=== PATIENT | male | born 1960 | race Caucasian/White ===

== ENCOUNTER 2022-05-16 14:36 | Emergency (ER) | payer OTHER ==
[2022-05-16] MEDS ORDERED: SODIUM CHLORIDE 1,987 ML IV ONE (16:34)
[2022-05-16 17:24] LABS: HEMATOCRIT 44.3 % (35.4-49); HEMOGLOBIN 14.8 G/dL (11.7-16.9); MCH 35.4 pg (25.7-33.7); MCHC 33.5 g/dl (32.0-35.9); MEAN CELL VOLUME 105.7 fl (80-96); MEAN PLT VOLUME 8.9 fl (7.5-11.1); PLATELET COUNT 151.6 10^3/uL (134-434); RBC 4.19 10^6/uL (4.00-5.60); RDW 14.4 % (11.9-15.9); WHITE BLOOD COUNT 7.6 10^3/uL (4.0-10.8)
[2022-05-16 17:35] LABS: ALBUMIN 3.3 g/dl (3.4-5.0); BILIRUBIN,TOTAL 0.8 mg/dl (0.2-1); CALCIUM 8.7 mg/dl (8.5-10); CREATININE 1.2 mg/dl (0.55-1.3); TOT PROT 7.9 g/dl (6.4-8.2)
[2022-05-16 17:40] LABS: INR 1.08 (0.83-1.09); PROTHROMBIN TIME (PATIENT) 12.4 SEC (9.7-13.0)
[2022-05-16 17:42] LABS: ACTIVATED PTT 34.6 SECONDS (25.2-36.5)
[2022-05-16 18:35] LABS: ANISOCYTOSIS 1+; MACROCYTOSIS 1+; PLATELET ESTIMATE ADEQUATE
[2022-05-16 18:43] LABS: VENOUS O2 SATURATION 80.4 % (70-80); VENOUS PCO2 53.2 mmHg (38-52); VENOUS PH 7.334 (7.310-7.410)
[2022-05-16 20:10] LABS: URINE APPEARANCE CLEAR; URINE BILIRUBIN NEGATIVE (NEGATIVE); URINE COLOR YELLOW; URINE GLUCOSE (UA) NEGATIVE (NEGATIVE)
[2022-05-16 20:11] LABS: URINE KETONE NEGATIVE (NEGATIVE); URINE LEUK ESTERASE NEGATIVE (NEGATIVE); URINE NITRITE NEGATIVE (NEGATIVE); URINE PROTEIN NEGATIVE (NEGATIVE); URINE UROBILINOGEN 0.2 (0.2-1.0)
[2022-05-16] MEDS ORDERED: DOXYCYCLINE HYCLATE 100 MG CAPSULE PO ONE ×2 (21:10→21:12)
[2022-05-16] MEDS ORDERED: carBAMazepine XR 400 MG TAB.ER.12H PO SCH (22:00)
[2022-05-16] MEDS ORDERED: SODIUM CHLORIDE 1,000 ML IV SCH (23:00)
[2022-05-16] MEDS: MELATONIN 1 MG TABLET PO SCH (23:14)
[2022-05-16] MEDS: LACOSAMIDE 50 MG TABLET PO SCH (23:15)
[2022-05-17] MEDS ORDERED: SODIUM CHLORIDE 500 ML IV STA (01:10)
[2022-05-17 08:31] LABS: CALCIUM 7.9 mg/dl (8.5-10); MAGNESIUM 1.6 mg/dL (1.8-2.4); PHOSPHOROUS 2.2 mg/dl (2.5-4.9)
[2022-05-17] MEDS: PANTOPRAZOLE 40 MG TABLET PO SCH (09:39)
[2022-05-17] MEDS: SENNOSIDES 8.6MG TABLET (FP) PO SCH (09:39)
[2022-05-17] MEDS: MONTELUKAST NA 10 MG TABLET PO SCH (09:39)
[2022-05-17] MEDS: DOCUSATE SODIUM 100 MG CAPSULE (FP) PO SCH (09:39)
[2022-05-17] MEDS: CHOLECALCIFEROL (VIT D3) 1,000 UNIT (25 MCG) TABLET PO SCH (09:40)
[2022-05-17] MEDS: carBAMazepine XR 200 MG TAB.ER.12H PO SCH ×2 (09:40→21:50)
[2022-05-17] MEDS: LACOSAMIDE 50 MG TABLET PO SCH ×2 (09:40→21:50)
[2022-05-17] MEDS: LORATADINE 10 MG TABLET PO SCH (09:40)
[2022-05-17] MEDS: MEMANTINE HCL 10 MG TABLET (FP) PO SCH (09:40)
[2022-05-17 10:09] LABS: BASO % 0.6 % (0-2.0); EOS % 0.4 % (0-4.5); HEMATOCRIT 34.9 % (35.4-49); HEMOGLOBIN 11.6 GM/dL (11.7-16.9); LYMPH % 30.5 % (8-40); MCH 34.9 pg (25.7-33.7); MCHC 33.2 g/dl (32.0-35.9); MEAN CELL VOLUME 105.2 fl (80-96); MONO % 10.1 % (3.8-10.2); NEUT % 58.4 % (42.8-82.8); PLATELET COUNT 151 10^3/uL (134-434); RBC 3.32 M/mm3 (4.00-5.60); RDW 15.2 % (11.9-15.9); WHITE BLOOD COUNT 4.4 K/mm3 (4.0-10.0)
[2022-05-17] MEDS ORDERED: DOXYCYCLINE HYCLATE 100 MG CAPSULE PO SCH (12:31)
[2022-05-17 13:10] LABS: ANISOCYTOSIS 1+; MACROCYTOSIS 1+
[2022-05-17] MEDS: PIPERACILLIN/TAZOB 3.375 GM 3.375 GM in DEXTROSE 5%-WATER - 50 ML IVPB SCH ×2 (13:58→17:56)
[2022-05-17 16:54] VITALS: BMI 25.7
[2022-05-17] MEDS: MELATONIN 1 MG TABLET PO SCH (21:50)
[2022-05-18] MEDS: PIPERACILLIN/TAZOB 3.375 GM 3.375 GM in DEXTROSE 5%-WATER - 50 ML IVPB SCH ×2 (01:39→09:52)
[2022-05-18 08:45] LABS: ALBUMIN 2.5 g/dl (3.4-5.0); BILIRUBIN,TOTAL 0.6 mg/dl (0.2-1); CREATININE 1.1 mg/dl (0.55-1.3); TOT PROT 6.4 g/dl (6.4-8.2)
[2022-05-18] MEDS: LACOSAMIDE 50 MG TABLET PO SCH ×2 (09:52→21:36)
[2022-05-18] MEDS: SENNOSIDES 8.6MG TABLET (FP) PO SCH (09:53)
[2022-05-18] MEDS: CHOLECALCIFEROL (VIT D3) 1,000 UNIT (25 MCG) TABLET PO SCH (09:53)
[2022-05-18] MEDS: carBAMazepine XR 200 MG TAB.ER.12H PO SCH ×2 (09:53→21:36)
[2022-05-18] MEDS: PANTOPRAZOLE 40 MG TABLET PO SCH (09:53)
[2022-05-18] MEDS: LORATADINE 10 MG TABLET PO SCH (09:53)
[2022-05-18] MEDS: MONTELUKAST NA 10 MG TABLET PO SCH (09:53)
[2022-05-18] MEDS: MEMANTINE HCL 10 MG TABLET (FP) PO SCH (09:53)
[2022-05-18] MEDS ORDERED: PIPERACILLIN/TAZOB 3.375 GM 3.375 GM in DEXTROSE 5%-WATER - 50 ML IVPB SCH ×2 (10:00→18:00)
[2022-05-18] MEDS: ENOXAPARIN NA (PORCINE) 40 MG/0.4 ML DISP.SYRIN SQ SCH (10:00)
[2022-05-18 10:35] LABS: HEMATOCRIT 35.5 % (35.4-49); HEMOGLOBIN 11.6 GM/dL (11.7-16.9); MCH 34.2 pg (25.7-33.7); MCHC 32.7 g/dl (32.0-35.9); MEAN CELL VOLUME 104.5 fl (80-96); MEAN PLT VOLUME 9.2 fl (7.5-11.1); PLATELET COUNT 157 10^3/uL (134-434); RDW 15.1 % (11.9-15.9); WHITE BLOOD COUNT 6.7 K/mm3 (4.0-10.0)
[2022-05-18] MEDS: DOCUSATE SODIUM 100 MG CAPSULE (FP) PO SCH (16:38)
[2022-05-18] MEDS: CEFTRIAXONE 1 GM in DEXTROSE 5%-WATER - 50 ML IVPB SCH (21:35)
[2022-05-18] MEDS: MELATONIN 1 MG TABLET PO SCH (21:36)
[2022-05-19 02:04] VITALS: RESP 18
[2022-05-19 08:37] LABS: ALBUMIN 2.5 g/dl (3.4-5.0); BILIRUBIN,TOTAL 0.5 mg/dl (0.2-1); CALCIUM 7.9 mg/dl (8.5-10); TOT PROT 6.4 g/dl (6.4-8.2)
[2022-05-19] MEDS: PANTOPRAZOLE 40 MG TABLET PO SCH (09:23)
[2022-05-19] MEDS: CEFTRIAXONE 1 GM in DEXTROSE 5%-WATER - 50 ML IVPB SCH (09:23)
[2022-05-19] MEDS: LORATADINE 10 MG TABLET PO SCH (09:23)
[2022-05-19] MEDS: MEMANTINE HCL 10 MG TABLET (FP) PO SCH (09:23)
[2022-05-19] MEDS: MONTELUKAST NA 10 MG TABLET PO SCH (09:23)
[2022-05-19] MEDS: carBAMazepine XR 200 MG TAB.ER.12H PO SCH (09:23)
[2022-05-19] MEDS: CHOLECALCIFEROL (VIT D3) 1,000 UNIT (25 MCG) TABLET PO SCH (09:23)
[2022-05-19] MEDS: LACOSAMIDE 50 MG TABLET PO SCH (09:23)
[2022-05-19] MEDS: DOCUSATE SODIUM 100 MG CAPSULE (FP) PO SCH (09:23)
[2022-05-19] MEDS: SENNOSIDES 8.6MG TABLET (FP) PO SCH (09:23)
[2022-05-19] MEDS: ENOXAPARIN NA (PORCINE) 40 MG/0.4 ML DISP.SYRIN SQ SCH (09:24)
[2022-05-19 11:48] LABS: BASO % 0.6 % (0-2.0); EOS % 1.5 % (0-4.5); HEMATOCRIT 35.8 % (35.4-49); HEMOGLOBIN 11.6 GM/dL (11.7-16.9); LYMPH % 30.7 % (8-40); MCH 33.8 pg (25.7-33.7); MCHC 32.3 g/dl (32.0-35.9); MEAN CELL VOLUME 104.5 fl (80-96); MEAN PLT VOLUME 9.2 fl (7.5-11.1); NEUT % 56.2 % (42.8-82.8); PLATELET COUNT 164 10^3/uL (134-434); RBC 3.42 M/mm3 (4.00-5.60); RDW 15.3 % (11.9-15.9); WHITE BLOOD COUNT 5.1 K/mm3 (4.0-10.0)
[2022-05-19 13:54] VITALS: BP 107/71; PULSE 64; TEMP 98.8
== END 2022-05-19 16:48 | disposition home or self-care (01) ==
LOC: FER 14:36 → UNDOADMOB 19:04 → FM/S 19:04
PROVIDERS: ADMIT Internal Medicine
PROC: 3E03329 Introduction of Other Anti-infective into Peripheral Vein, Percutaneous Approach (ICD-10-PCS; principal; 2022-05-16)
PROC: 3E023GC Introduction of Other Therapeutic Substance into Muscle, Percutaneous Approach (ICD-10-PCS; 2022-05-16)
PROC: 3E0337Z Introduction of Electrolytic and Water Balance Substance into Peripheral Vein, Percutaneous Approach (ICD-10-PCS; 2022-05-16)
DX: E86.0 Dehydration (principal); Q90.9 Down syndrome, unspecified; I95.9 Hypotension, unspecified; G81.90 Hemiplegia, unspecified affecting unspecified side; J90 Pleural effusion, not elsewhere classified; J18.9 Pneumonia, unspecified organism; Z86.59 Personal history of other mental and behavioral disorders; R56.9 Unspecified convulsions; R05.9 Cough, unspecified
CPT/HCPCS: 0241U-QW; 36415; 71045-TC-FY; 80048; 80053; 81003; 82550; 82553; 82803; 83605; 83735; 84100; 84484; 85025; 85027; 85610; 85730; 87040; 87086; 93005; 96361; 96365; 96366; 96367; 96372; 99285-25; G0378

== ENCOUNTER 2022-09-12 14:00 | Inpatient (IN) | payer OTHER ==
[2022-09-12] MEDS ORDERED: HALOPERIDOL LACTATE 5 MG/ML IM ONE ×2 (14:02→14:15)
[2022-09-12] MEDS ORDERED: MIDAZOLAM HCL 5 MG/1 ML Single Dose Vial IM ONE (14:03)
[2022-09-12 14:08] VITALS: BMI 23.9
[2022-09-12] MEDS ORDERED: MIDAZOLAM HCL 2 MG/2 ML SINGLE DOSE VIAL ONE (14:15)
[2022-09-12] MEDS ORDERED: LACTATED RINGERS SOLUTION 1000 ML INFUS.BAG IV ONE (14:50)
[2022-09-12 15:15] LABS: HEMATOCRIT 35.7 % (35.4-49); HEMOGLOBIN 11.9 G/dL (11.7-16.9); MCH 35.1 pg (25.7-33.7); MCHC 33.3 g/dl (32.0-35.9); MEAN CELL VOLUME 105.2 fl (80-96); MEAN PLT VOLUME 9.4 fl (7.5-11.1); PLATELET COUNT 92.1 10^3/uL (134-434); RBC 3.39 10^6/uL (4.00-5.60); RDW 16.3 % (11.9-15.9); WHITE BLOOD COUNT 5.6 10^3/uL (4.0-10.8)
[2022-09-12 15:30] LABS: MAGNESIUM 1.9 mg/dL (1.8-2.4); PHOSPHOROUS 2.3 mg/dl (2.5-4.9)
[2022-09-12 15:31] LABS: ALBUMIN 2.6 g/dl (3.4-5.0); BILIRUBIN,TOTAL 0.7 mg/dl (0.2-1); CALCIUM 8.5 mg/dl (8.5-10); TOT PROT 6.7 g/dl (6.4-8.2)
[2022-09-12 15:34] LABS: INR 1.16 (0.83-1.09); PROTHROMBIN TIME (PATIENT) 13.4 SEC (9.7-13.0)
[2022-09-12 15:36] LABS: ACTIVATED PTT 34.1 SECONDS (25.2-36.5)
[2022-09-12 15:46] LABS: ANISOCYTOSIS 1+; MACROCYTOSIS 1+; PLATELET ESTIMATE DECREASED
[2022-09-12] MEDS ORDERED: VANCOMYCIN 1 GM in D5W (PRE-DOCKED) 1,000 MG/250 ML IVPB ONE (16:04)
[2022-09-12] MEDS ORDERED: PIPERACILLIN/TAZOBACTAM 4.5 GM VIAL IVPB ONE (16:05)
[2022-09-12] MEDS ORDERED: VANCOMYCIN 1,000 MG VIAL (RESTRICTED TO ID ONLY) ONE (16:05)
[2022-09-12] MEDS ORDERED: PIPERACILLIN/TAZOB 4.5 GM 4.5 GM in DEXTROSE 5%-WATER 100 ML IVPB ONE (16:05)
[2022-09-12] MEDS ORDERED: SODIUM CHLORIDE 0.9% 500 ML INFUS.BAG IV ONE (16:17)
[2022-09-12] MEDS ORDERED: NALOXONE HCL 0.4 MG/ML VIAL IVPUSH ONE (16:52)
[2022-09-12] MEDS ORDERED: NALOXONE HCL 0.4 MG/ML VIAL ONE (16:53)
[2022-09-13] MEDS: PIPERACILLIN/TAZOB 3.375 GM 3.375 GM in DEXTROSE 5%-WATER - 50 ML IVPB SCH ×3 (03:05→17:59)
[2022-09-13] MEDS: VANCOMYCIN 1 GM in D5W (PRE-DOCKED) 1,000 MG/250 ML IVPB SCH ×2 (03:05→15:53)
[2022-09-13 07:58] LABS: ALBUMIN 2.2 g/dl (3.4-5.0); BILIRUBIN,TOTAL 1.4 mg/dl (0.2-1); CALCIUM 7.7 mg/dl (8.5-10); CREATININE 0.9 mg/dl (0.55-1.3); TOT PROT 5.8 g/dl (6.4-8.2)
[2022-09-13] MEDS: LACOSAMIDE 50 MG TABLET PO SCH ×2 (09:17→21:52)
[2022-09-13] MEDS: TAMSULOSIN HCL 0.4 MG CAP PO SCH (09:17)
[2022-09-13] MEDS: MEMANTINE HCL 10 MG TABLET (FP) PO SCH ×2 (09:17→21:52)
[2022-09-13 09:52] LABS: BASO % 0.9 % (0-2.0); EOS % 0.4 % (0-4.5); HEMATOCRIT 32.9 % (35.4-49); HEMOGLOBIN 10.8 GM/dL (11.7-16.9); LYMPH % 18.8 % (8-40); MCH 34.4 pg (25.7-33.7); MCHC 32.8 g/dl (32.0-35.9); MEAN CELL VOLUME 104.7 fl (80-96); MEAN PLT VOLUME 9.5 fl (7.5-11.1); MONO % 6.6 % (3.8-10.2); NEUT % 73.3 % (42.8-82.8); PLATELET COUNT 93 10^3/uL (134-434); RBC 3.14 M/mm3 (4.00-5.60); RDW 18.4 % (11.9-15.9); WHITE BLOOD COUNT 3.9 K/mm3 (4.0-10.0)
[2022-09-13] MEDS ORDERED: ENOXAPARIN NA (PORCINE) 30 MG/0.3 ML DISP.SYRIN SQ SCH (10:00)
[2022-09-13] MEDS: ENOXAPARIN NA (PORCINE) 40 MG/0.4 ML DISP.SYRIN SQ SCH (11:33)
[2022-09-14] MEDS ORDERED: PIPERACILLIN/TAZOB 3.375 GM 3.375 GM in DEXTROSE 5%-WATER - 50 ML IVPB SCH (04:30)
[2022-09-14] MEDS ORDERED: VANCOMYCIN 1 GM in D5W (PRE-DOCKED) 1,000 MG/250 ML IVPB SCH (05:00)
[2022-09-14] MEDS: TAMSULOSIN HCL 0.4 MG CAP PO SCH (08:35)
[2022-09-14 08:44] LABS: ALBUMIN 2.1 g/dl (3.4-5.0); BILIRUBIN,TOTAL 0.8 mg/dl (0.2-1); CALCIUM 7.9 mg/dl (8.5-10); TOT PROT 5.5 g/dl (6.4-8.2)
[2022-09-14 10:01] LABS: HEMATOCRIT 32.6 % (35.4-49); HEMOGLOBIN 10.9 GM/dL (11.7-16.9); MCH 34.5 pg (25.7-33.7); MCHC 33.4 g/dl (32.0-35.9); MEAN CELL VOLUME 103.3 fl (80-96); PLATELET COUNT 101 10^3/uL (134-434); RBC 3.15 M/mm3 (4.00-5.60); RDW 18.5 % (11.9-15.9); WHITE BLOOD COUNT 3.1 K/mm3 (4.0-10.0)
[2022-09-14] MEDS: PIPERACILLIN/TAZOB 3.375 GM 3.375 GM in DEXTROSE 5%-WATER - 50 ML IVPB SCH ×2 (10:14→17:42)
[2022-09-14] MEDS: ENOXAPARIN NA (PORCINE) 40 MG/0.4 ML DISP.SYRIN SQ SCH (10:14)
[2022-09-14] MEDS: LACOSAMIDE 50 MG TABLET PO SCH ×2 (10:15→21:01)
[2022-09-14] MEDS: MEMANTINE HCL 10 MG TABLET (FP) PO SCH ×2 (10:15→21:01)
[2022-09-14 10:45] LABS: ANISOCYTOSIS 1+; MACROCYTOSIS 1+
[2022-09-15] MEDS ORDERED: PIPERACILLIN/TAZOB 3.375 GM 3.375 GM in DEXTROSE 5%-WATER - 50 ML IVPB SCH (02:00)
[2022-09-15] MEDS: PIPERACILLIN/TAZOB 3.375 GM 3.375 GM in DEXTROSE 5%-WATER - 50 ML IVPB SCH ×3 (02:00→18:29)
[2022-09-15] MEDS ORDERED: VANCOMYCIN 1 GM in D5W (PRE-DOCKED) 1,000 MG/250 ML IVPB SCH (05:00)
[2022-09-15 08:50] LABS: ALBUMIN 2.3 g/dl (3.4-5.0); BILIRUBIN,TOTAL 0.8 mg/dl (0.2-1); CALCIUM 7.9 mg/dl (8.5-10); CREATININE 0.8 mg/dl (0.55-1.3)
[2022-09-15] MEDS: ENOXAPARIN NA (PORCINE) 40 MG/0.4 ML DISP.SYRIN SQ SCH (09:32)
[2022-09-15] MEDS: TAMSULOSIN HCL 0.4 MG CAP PO SCH (09:32)
[2022-09-15] MEDS: MEMANTINE HCL 10 MG TABLET (FP) PO SCH ×2 (09:32→22:55)
[2022-09-15] MEDS: LACOSAMIDE 50 MG TABLET PO SCH ×2 (09:32→22:55)
[2022-09-15 09:59] LABS: BASO % 0.2 % (0-2.0); EOS % 0.7 % (0-4.5); HEMATOCRIT 33.2 % (35.4-49); LYMPH % 36.1 % (8-40); MCH 34.1 pg (25.7-33.7); MCHC 33.1 g/dl (32.0-35.9); MEAN CELL VOLUME 102.9 fl (80-96); MEAN PLT VOLUME 8.9 fl (7.5-11.1); MONO % 12.1 % (3.8-10.2); NEUT % 50.9 % (42.8-82.8); PLATELET COUNT 105 10^3/uL (134-434); RBC 3.23 M/mm3 (4.00-5.60); RDW 18.2 % (11.9-15.9); WHITE BLOOD COUNT 3.3 K/mm3 (4.0-10.0)
[2022-09-16] MEDS: PIPERACILLIN/TAZOB 3.375 GM 3.375 GM in DEXTROSE 5%-WATER - 50 ML IVPB SCH ×3 (02:36→17:09)
[2022-09-16 09:32] LABS: HEMOGLOBIN 11.1 GM/dL (11.7-16.9); MCH 34.1 pg (25.7-33.7); MCHC 33.5 g/dl (32.0-35.9); MEAN CELL VOLUME 101.8 fl (80-96); MEAN PLT VOLUME 8.9 fl (7.5-11.1); PLATELET COUNT 112 10^3/uL (134-434); RBC 3.25 M/mm3 (4.00-5.60); RDW 17.4 % (11.9-15.9); WHITE BLOOD COUNT 3.8 K/mm3 (4.0-10.0)
[2022-09-16 09:56] LABS: ALBUMIN 2.3 g/dl (3.4-5.0); CALCIUM 8.1 mg/dL (8.5-10.1)
[2022-09-16 09:57] LABS: BLOOD UREA NITROGEN 11.1 mg/dL (7-18)
[2022-09-16 10:00] LABS: CREATININE 0.8 mg/dL (0.55-1.3)
[2022-09-16 10:01] LABS: BILIRUBIN,TOTAL 0.5 mg/dL (0.2-1); TOT PROT 6.6 g/dl (6.4-8.2)
[2022-09-16] MEDS: TAMSULOSIN HCL 0.4 MG CAP PO SCH (10:04)
[2022-09-16] MEDS: LACOSAMIDE 50 MG TABLET PO SCH ×2 (10:04→21:10)
[2022-09-16] MEDS: ENOXAPARIN NA (PORCINE) 40 MG/0.4 ML DISP.SYRIN SQ SCH (10:04)
[2022-09-16] MEDS: MEMANTINE HCL 10 MG TABLET (FP) PO SCH ×2 (10:04→21:11)
[2022-09-16 10:13] LABS: ANISOCYTOSIS 1+; MACROCYTOSIS 1+
[2022-09-16] MEDS: FOLIC ACID 1 MG TABLET (FP) PO SCH (12:10)
[2022-09-17] MEDS: PIPERACILLIN/TAZOB 3.375 GM 3.375 GM in DEXTROSE 5%-WATER - 50 ML IVPB SCH ×3 (01:18→17:27)
[2022-09-17] MEDS: TAMSULOSIN HCL 0.4 MG CAP PO SCH (08:52)
[2022-09-17] MEDS: ENOXAPARIN NA (PORCINE) 40 MG/0.4 ML DISP.SYRIN SQ SCH (09:52)
[2022-09-17] MEDS: MEMANTINE HCL 10 MG TABLET (FP) PO SCH ×2 (09:52→22:16)
[2022-09-17] MEDS: LACOSAMIDE 50 MG TABLET PO SCH ×2 (09:52→22:16)
[2022-09-17] MEDS: FOLIC ACID 1 MG TABLET (FP) PO SCH (09:52)
[2022-09-17 12:58] LABS: EOS % 0.7 % (0-4.5); HEMATOCRIT 35.6 % (35.4-49); HEMOGLOBIN 11.5 GM/dL (11.7-16.9); LYMPH % 37.2 % (8-40); MCH 32.8 pg (25.7-33.7); MCHC 32.4 g/dl (32.0-35.9); MEAN CELL VOLUME 101.1 fl (80-96); MEAN PLT VOLUME 8.9 fl (7.5-11.1); MONO % 12.4 % (3.8-10.2); NEUT % 48.7 % (42.8-82.8); PLATELET COUNT 120 10^3/uL (134-434); RBC 3.52 M/mm3 (4.00-5.60); RDW 17.3 % (11.9-15.9); WHITE BLOOD COUNT 3.1 K/mm3 (4.0-10.0)
[2022-09-17 13:17] LABS: CALCIUM 8.1 mg/dL (8.5-10.1)
[2022-09-17 13:18] LABS: BLOOD UREA NITROGEN 12.4 mg/dL (7-18)
[2022-09-17 13:21] LABS: CREATININE 0.9 mg/dL (0.55-1.3)
[2022-09-18] MEDS: PIPERACILLIN/TAZOB 3.375 GM 3.375 GM in DEXTROSE 5%-WATER - 50 ML IVPB SCH ×3 (01:42→18:07)
[2022-09-18] MEDS: FOLIC ACID 1 MG TABLET (FP) PO SCH (09:17)
[2022-09-18] MEDS: ENOXAPARIN NA (PORCINE) 40 MG/0.4 ML DISP.SYRIN SQ SCH (09:17)
[2022-09-18] MEDS: MEMANTINE HCL 10 MG TABLET (FP) PO SCH ×2 (09:17→21:32)
[2022-09-18] MEDS: TAMSULOSIN HCL 0.4 MG CAP PO SCH (09:17)
[2022-09-18] MEDS: LACOSAMIDE 50 MG TABLET PO SCH ×2 (10:14→21:32)
[2022-09-18 10:29] LABS: BASO % 1.1 % (0-2.0); EOS % 0.7 % (0-4.5); HEMATOCRIT 34.7 % (35.4-49); HEMOGLOBIN 11.4 GM/dL (11.7-16.9); LYMPH % 32.8 % (8-40); MCH 33.4 pg (25.7-33.7); MEAN CELL VOLUME 101.3 fl (80-96); MEAN PLT VOLUME 8.9 fl (7.5-11.1); MONO % 10.2 % (3.8-10.2); NEUT % 55.2 % (42.8-82.8); PLATELET COUNT 142 10^3/uL (134-434); RBC 3.42 M/mm3 (4.00-5.60); RDW 17.7 % (11.9-15.9); WHITE BLOOD COUNT 3.6 K/mm3 (4.0-10.0)
[2022-09-18 11:36] LABS: ALBUMIN 2.4 g/dl (3.4-5.0); BILIRUBIN,TOTAL 0.4 mg/dL (0.2-1); BLOOD UREA NITROGEN 17.2 mg/dL (7-18); CALCIUM 8.3 mg/dL (8.5-10.1); TOT PROT 6.8 g/dl (6.4-8.2)
[2022-09-18 12:40] LABS: PHOSPHOROUS 2.8 mg/dL (2.5-4.9)
[2022-09-19] MEDS: PIPERACILLIN/TAZOB 3.375 GM 3.375 GM in DEXTROSE 5%-WATER - 50 ML IVPB SCH ×3 (01:41→17:34)
[2022-09-19 04:01] VITALS: RESP 18
[2022-09-19] MEDS: TAMSULOSIN HCL 0.4 MG CAP PO SCH (09:29)
[2022-09-19] MEDS: FOLIC ACID 1 MG TABLET (FP) PO SCH (09:30)
[2022-09-19] MEDS: LACOSAMIDE 50 MG TABLET PO SCH ×2 (09:30→22:50)
[2022-09-19] MEDS: ENOXAPARIN NA (PORCINE) 40 MG/0.4 ML DISP.SYRIN SQ SCH (09:31)
[2022-09-19] MEDS: MEMANTINE HCL 10 MG TABLET (FP) PO SCH ×2 (09:31→22:06)
[2022-09-19 10:03] LABS: BASO % 1.3 % (0-2.0); EOS % 0.4 % (0-4.5); HEMATOCRIT 34.2 % (35.4-49); HEMOGLOBIN 11.2 GM/dL (11.7-16.9); LYMPH % 25.1 % (8-40); MCH 33.3 pg (25.7-33.7); MCHC 32.8 g/dl (32.0-35.9); MEAN CELL VOLUME 101.7 fl (80-96); MEAN PLT VOLUME 8.9 fl (7.5-11.1); MONO % 9.2 % (3.8-10.2); PLATELET COUNT 162 10^3/uL (134-434); RBC 3.36 M/mm3 (4.00-5.60); RDW 17.6 % (11.9-15.9); WHITE BLOOD COUNT 4.2 K/mm3 (4.0-10.0)
[2022-09-19 10:45] LABS: ALBUMIN 2.3 g/dl (3.4-5.0); BLOOD UREA NITROGEN 16.3 mg/dL (7-18); CALCIUM 8.2 mg/dL (8.5-10.1)
[2022-09-19 10:47] LABS: CREATININE 0.9 mg/dL (0.55-1.3)
[2022-09-19 10:49] LABS: BILIRUBIN,TOTAL 0.5 mg/dL (0.2-1); TOT PROT 6.8 g/dl (6.4-8.2)
[2022-09-20] MEDS: PIPERACILLIN/TAZOB 3.375 GM 3.375 GM in DEXTROSE 5%-WATER - 50 ML IVPB SCH (03:13)
[2022-09-20] MEDS: TAMSULOSIN HCL 0.4 MG CAP PO SCH (09:04)
[2022-09-20] MEDS ORDERED: LACTOBACILLUS ACIDOPHILUS 1 TABLET PO SCH (10:00)
[2022-09-20] MEDS ORDERED: AMOX TR/POT CLAV 875MG/125MG TABLETS (FP) PO SCH (10:00)
[2022-09-20] MEDS: FOLIC ACID 1 MG TABLET (FP) PO SCH (11:16)
[2022-09-20] MEDS: LACOSAMIDE 50 MG TABLET PO SCH (11:16)
[2022-09-20] MEDS: ENOXAPARIN NA (PORCINE) 40 MG/0.4 ML DISP.SYRIN SQ SCH (11:17)
[2022-09-20] MEDS: MEMANTINE HCL 10 MG TABLET (FP) PO SCH (11:17)
[2022-09-20 14:06] VITALS: BP 92/60; PULSE 74; TEMP 98
== END 2022-09-20 15:52 | disposition home health service (06) | DRG 177 ==
LOC: FER 14:00 → FM/S 16:34 → J6S 09-15 12:00
PROVIDERS: ADMIT Internal Medicine; ATTEND Internal Medicine
DX: J69.0 Pneumonitis due to inhalation of food and vomit (principal); G93.41 Metabolic encephalopathy; D61.818 Other pancytopenia; R47.01 Aphasia; J90 Pleural effusion, not elsewhere classified; J98.11 Atelectasis; R41.82 Altered mental status, unspecified; Q90.9 Down syndrome, unspecified; I10 Essential (primary) hypertension; E78.5 Hyperlipidemia, unspecified; K21.9 Gastro-esophageal reflux disease without esophagitis; K59.00 Constipation, unspecified; G40.909 Epilepsy, unspecified, not intractable, without status epilepticus; N13.9 Obstructive and reflux uropathy, unspecified; F03.90 Unspecified dementia, unspecified severity, without behavioral disturbance, psychotic disturbance, mood disturbance, and anxiety
CPT/HCPCS: 0241U-QW; 36415; 71045-TC-FY; 71250-TC; 74230-TC-FY; 80048; 80053; 81003; 82607; 82728; 82746; 82962; 83540; 83550; 83605; 83735; 84100; 84484; 85025; 85027; 85045; 85610; 85730; 87040; 87081; 87086; 87899; 92611-GN; 93005; 97161-GP; 99285-25